=== PATIENT | female | born 2000 | race Caucasian/White ===

== ENCOUNTER 2024-06-02 22:16 | Inpatient (IN) ==
[2024-06-02 23:33] LABS: Urine Appearance Clear; Urine Bilirubin Negative (Negative); Urine Blood 1+ (Negative); Urine Color Colorless; Urine Glucose Negative (Negative); Urine Ketones Negative (Negative); Urine Nitrite Negative (Negative); Urine Protein Negative (Negative); Urine Specific Gravity 1.004 (1.002-1.030); Urine Urobilinogen Negative (Negative); Urine pH 6.5 (5.0-8.0)
[2024-06-02 23:35] LABS: Urine Bacteria 1+ /HPF (Absent); Urine Red Blood Cell Trace(0-2/hpf) /HPF (0-Trace); Urine Squamous Epithelial Cell Present /HPF (Absent); Urine White Blood Cell Trace(0-5/hpf) /HPF (0-Trace)
[2024-06-03 00:41] LABS: ABS Basophils 0.1 10^3/uL (0.0-0.1); ABS Eosinophils 0.2 10^3/uL (0.0-0.5); ABS Lymphocytes 1.9 10^3/uL (1.0-4.8); ABS Monocytes 0.7 10^3/uL (0.0-0.9); ABS Neutrophils 4.5 10^3/uL (1.5-7.6); ABS Nucleated RBC 0.01 10^3/ul; Eosinophil % 2.2 %; Hematocrit 34.9 % (35-45); Hemoglobin 11.7 g/dL (11.5-14.3); Lymphocyte % 25.5 %; Mean Corpuscular Hemoglobin 26.7 pg (27-33); Mean Corpuscular Hgb Conc 33.4 g/dL (31-36); Mean Corpuscular Volume 79.9 fL (80-97); Mean Platelet Volume 7.6 fL (7.5-11.2); Nucleated Red Blood Cells % 0.1 %/100WBC (0.0-0.8); Platelet Count 488 10^3/uL (150-450); Red Blood Count 4.36 10^6/uL (3.63-4.92); Red Cell Distribution Width 14.9 % (12-17); White Blood Count 7.3 10^3/uL (3.8-11.8)
[2024-06-03 01:06] LABS: ALT 16 U/L (7-52); AST 16 U/L (13-39); Albumin 4.2 g/dL (3.5-5.7); Alkaline Phosphatase 49 U/L (35-149); Anion Gap 4 mmol/L (2-16); Blood Urea Nitrogen 10 mg/dL (6-24); C Reactive Protein 40.72 mg/L (<8.01); CO2 Carbon Dioxide 26 mmol/L (22-32); Calcium 9.5 mg/dL (8.6-10.3); Chloride 102 mmol/L (101-111); Creatinine, Serum 0.63 mg/dL (0.51-0.95); Globulin 4.4 g/dL (2-4); Glucose 98 mg/dL (70-100); Lipase 11 U/L (11.0-82.0); Potassium 3.8 mmol/L (3.5-5.0); Sodium 132 mmol/L (135-145); Total Bilirubin 0.2 mg/dL (0.2-1.0); Total Protein 8.6 g/dL (6.4-8.9)
[2024-06-03 01:13] LABS: HCG Pregnancy < 0.60 mIU/mL
[2024-06-03] MEDS: Iohexol 350 (CONTRAST) 500 ML MDV IV ONE (06:11)
[2024-06-03] MEDS: Lactated Ringers 1000 ml BAG 1,000 ML IV ONE (06:20)
[2024-06-03] MEDS: Piperacillin/Tazobac 3.375 BAG 3.375 GM/100 ML BAG IV ONE (08:08)
[2024-06-03] MEDS ORDERED: Zosyn per Pharmacy NOTE FOLLOW UP SCH (12:00)
[2024-06-03] MEDS: ZOSYN 3.375 GM Q8H per EXTENDED INFUSION IV SCH ×2 (12:42→21:28)
[2024-06-03] MEDS: Enoxaparin 40 MG/0.4 ML SYR SUBCUT SCH (12:42)
[2024-06-03] MEDS: Ondansetron 4 mg VIAL 2 MG/ML 2 ml VIAL IV PRN (14:56)
[2024-06-03] MEDS: ETH EST PO SCH (21:43)
[2024-06-03] MEDS: JUNEL PO SCH (21:43)
[2024-06-03] MEDS: NORETHINDRONE PO SCH (21:43)
[2024-06-04] MEDS: Metoclopramide 5 MG/ML VIAL (10 mg) IV SLOW PU ONE (00:18)
[2024-06-04 06:48] LABS: ABS Eosinophils 0.1 10^3/uL (0.0-0.5); ABS Monocytes 0.5 10^3/uL (0.0-0.9); ABS Neutrophils 6.6 10^3/uL (1.5-7.6); Hematocrit 30.8 % (35-45); Hemoglobin 10.5 g/dL (11.5-14.3); Mean Corpuscular Hemoglobin 27.2 pg (27-33); Mean Corpuscular Hgb Conc 34.1 g/dL (31-36); Mean Corpuscular Volume 79.8 fL (80-97); Mean Platelet Volume 7.7 fL (7.5-11.2); Platelet Count 380 10^3/uL (150-450); Red Blood Count 3.86 10^6/uL (3.63-4.92); Red Cell Distribution Width 14.7 % (12-17); White Blood Count 8.2 10^3/uL (3.8-11.8)
[2024-06-04 07:15] LABS: Calcium 8.9 mg/dL (8.6-10.3); Creatinine, Serum 0.66 mg/dL (0.51-0.95); Potassium 4.5 mmol/L (3.5-5.0); eGFR CKD-EPI 125.5 (>60)
[2024-06-04] MEDS ORDERED: Lorazepam PYXIS KEY PRN (11:09)
[2024-06-04] MEDS: LORazepam 2 mg VIAL 1 ml IV PUSH PRN (21:36)
[2024-06-06 06:44] LABS: ABS Basophils 0.1 10^3/uL (0.0-0.1); ABS Eosinophils 0.2 10^3/uL (0.0-0.5); ABS Lymphocytes 1.7 10^3/uL (1.0-4.8); ABS Monocytes 0.8 10^3/uL (0.0-0.9); Eosinophil % 3.1 %; Hematocrit 28.6 % (35-45); Lymphocyte % 21.7 %; Mean Corpuscular Hemoglobin 27.8 pg (27-33); Mean Corpuscular Hgb Conc 35.2 g/dL (31-36); Mean Platelet Volume 7.8 fL (7.5-11.2); Platelet Count 360 10^3/uL (150-450); Red Blood Count 3.62 10^6/uL (3.63-4.92); Red Cell Distribution Width 14.7 % (12-17); White Blood Count 7.7 10^3/uL (3.8-11.8)
[2024-06-06 07:26] LABS: Calcium 8.3 mg/dL (8.6-10.3); Creatinine, Serum 0.71 mg/dL (0.51-0.95); Magnesium 1.8 mg/dL (1.9-2.7); Potassium 3.8 mmol/L (3.5-5.0); eGFR CKD-EPI 121.7 (>60)
[2024-06-07] MEDS: Iohexol 300 (CONTRAST) 10 ML SDV IV ONE (11:28)
[2024-06-08 11:47] VITALS: BP 122/83
== END 2024-06-08 12:15 | disposition home or self-care (01) | DRG 248 ==
LOC: ED 22:16 → EDHOLD 06-03 11:08 → SSU 06-03 13:19
PROVIDERS: ADMIT Surgery; ATTEND Surgery